=== PATIENT | male | born 1960 | race Caucasian/White ===

== ENCOUNTER → 2022-02-04 | Outpatient (CLI) | payer BC ==
[~2022-02-04] MED LIST: CLEOCIN HC150 MG/CAP PO; COUMADIN 1010 MG/TAB PO; COUMADIN 5MG5 MG/TAB PO; GLUCOPHAGE500 MG/TAB PO; GLUCOTROL XL5 MG/TAB PO; LORTAB 5/500 501 TAB PO; MOBIC 7.5MG7.5 MG PO; PRINIVIL10 MG PO; PROTONIX 40MG T40 MG PO; ZOCOR 40MG40 MG PO
[2022-02-04 12:07] LABS: COLLECTION METHOD CLEAN CATCH
[2022-02-04 12:14] LABS: URINE APPEARANCE Clear (CLEAR/HAZY); URINE COLOR Yellow (YELLOW)
[2022-02-04 12:15] LABS: URINE BLOOD Negative (NEGATIVE); URINE GLUCOSE 3+ (NEGATIVE); URINE KETONE TRACE (NEGATIVE); URINE NITRATE Negative (NEGATIVE); URINE PROTEIN(semi-quant) TRACE (NEGATIVE); URINE UROBILINOGEN 0.2 E.U/dL (0.2-1.0)
[2022-02-04 12:16] LABS: HEMATOCRIT 43.3 % (42.0-52.0); HEMOGLOBIN 14.5 g/dl (13.5-18.0); MEAN CELL VOLUME 92 fl (80.0-100.0); MEAN CORPUSCULAR HEMOGLOBIN 31 pg (27-31); MEAN CORPUSCULAR HGB CONC 34 g/dl (33.0-37.0); MEAN PLATELET VOLUME 11.3 fl (7.4-10.4); PLATELET COUNT 298 K/mm3 (130-400); RED BLOOD COUNT 4.69 M/mm3 (4.20-5.60); REDCELL DISTRIBUTION WIDTH-CV 11.9 % (11.5-14.5)
[2022-02-04 12:16] LABS: MUCOUS Present (NOT PRESENT); SQUAMOUS EPITHELIAL 0-2 /hpf (0-10); URINE BACTERIA None Seen /hpf (NONE SEEN); URINE RBC 0-2 /hpf (0-2)
[2022-02-04 12:19] LABS: INR 2.3 (0.8-3.0); PROTHROMBIN TIME 26.5 SECONDS (9.7-12.8)
[2022-02-04 12:32] LABS: ALBUMIN 4.3 gm/dL (3.4-4.8); CALCIUM 9.4 mg/dL (8.4-10.2); CREATININE, serum 1.5 mg/dL (0.72-1.25); POTASSIUM 4.2 mmol/L (3.5-4.5); TOTAL PROTEIN 7.4 gm/dL (6.2-8.1)
== END ==
LOC: COL.CARD 11:17
PROVIDERS: Internal Medicine Geriatric Medicine
DX: R53.83 Other fatigue (principal); E11.9 Type 2 diabetes mellitus without complications; I10 Essential (primary) hypertension; Z86.718 Personal history of other venous thrombosis and embolism